=== PATIENT | male | born 1945 | race Caucasian/White ===

== ENCOUNTER → 2020-06-13 | Outpatient (CLI) | payer MEDICARE, OTHER ==
--- NOTE | 2020-07-07 18:15 | PF ---
[address] [address] PULMONARY FUNCTION REPORT Name: CATHLEEN ANDINO Room: [facility]#: [id number] Admission: 06/13/20 Attend Phys: Ivan Bailey MD Discharge: Date of : 49 Report #: [id number] THIS REPORT FOR: //name// CC: Salvatore Akhtar DATE OF SERVICE: 06/13/2020 The FEV1/FVC ratio is normal at 82%, but FVC is severely decreased to 42% and the FEV1 is decreased to 48%. The [id number] is normal at 78%. After the administration of a bronchodilator, there is a 25% increase in FVC and a 41% increase in FEV1 to 68%, which is equal to 1.87 liters. There is also a marked increase in QRI20-24 to 161% noted. The total lung capacity is normal at 88%. The residual volume is increased to 148%. The DLCO as adjusted for hemoglobin is normal at 83%. IMPRESSION: 1. The severity of obstruction by FEV1 criteria is judged based on the post-bronchodilator FEV1. Going by those criteria, this patient has moderate obstruction. It is, however, noted that the patient's initial FEV1 is noted to be 48%, which is in the severe range. It is, however, possible that this initial FEV1 may be an underestimate due to variation in the patient's effort. Repeating spirometry to clarify this may therefore be considered if clinically appropriate. There is evidence of reversibility as described above. 2. Hyperinflation with a significant increase in residual volume, but total lung capacity is normal. 3. The DLCO as adjusted for hemoglobin is normal at 83%. <ELECTRONICALLY SIGNED> By: Neel Hayes MD 07/07/20 1815 [id number] Hayes MD /nt
== END ==
LOC: M.PUL 11:01
PROVIDERS: ATTEND Internal Medicine Pulmonary Disease
DX: J84.10 Pulmonary fibrosis, unspecified (principal); J84.9 Interstitial pulmonary disease, unspecified; R94.2 Abnormal results of pulmonary function studies

== ENCOUNTER → 2020-06-24 | Outpatient (CLI) | payer MEDICARE, OTHER ==
--- NOTE | 2020-06-24 17:28 | 2DMMODE ---
[place] [address] 2 D/M-MODE ECHOCARDIOGRAM Name: SEFERINO ANDINO Room: [facility]#: [id number] Admission: 06/24/20 Attend Phys: Ivan Bailey MD Discharge: Date of : 49 Date of Service: 06/24/20 1728 Report #: [id number] THIS REPORT FOR: cc: Giorgio Akhtar Gregory DO Liston, Michael J. MD [facility] ~ APPROVED REPORT Study performed: 06/24/2020 13:59:14 EXAM: Comprehensive 2D, Doppler, and color-flow Echocardiogram Patient Location: Out-Patient BSA: 1.75 HR: 130 bpm Other Information Study Quality: Good Indications Increased Heart Rate 2D Dimensions IVSd: 10.01 (7-11mm) LVOT Diam: 20.69 (18-24mm) LVDd: 44.16 mm PWd: 10.79 (7-11mm) Ascending Ao: 34.54 (22-36mm) LVDs: 22.28 (25-40mm) Aortic Root: 33.68 mm Volumes Left Atrial Volume (Systole) LA ESV Index: 27.50 mL/m2 Aortic Valve AoV Peak Yeyo.: 1.11 m/s AO Peak Gr.: 4.95 mmHg LVOT Max P.73 mmHg AO Mean Gr.: 3.00 mmHg LVOT Mean P.02 mmHg LVOT Max V: 1.09 m/s AO V2 VTI: 15.08 cm LVOT Mean V: 0.65 m/s GIGI (VTI): 3.27 cm2 LVOT V1 VTI: 14.67 cm Mitral Valve MV Decel. Time: 108.21 [place] [address] 2 D/M-MODE ECHOCARDIOGRAM Name: SEFERINO ANDINO Room: [facility]#: [id number] Admission: 06/24/20 Attend Phys: Ivan Bailey MD Discharge: Date of : 49 Date of Service: 06/24/20 1728 Report #: [id number] PHT: 31.38 ms MVA (PHT): 7.01 cm2 TDI Medial E' Yeyo.: 0.09 m/s Lateral E' Yeyo.: 0.15 m/s Pulmonary Valve PV Peak Yeyo.: 0.64 m/s PV Peak Gr.: 1.66 mmHg Tricuspid Valve RAP Estimate: 5.00 mmHg TR Peak Gr.: 35.03 mmHg RVSP: 40.03 mmHg PA Pressure: 40.03 mmHg Left Ventricle The left ventricle is normal size. There is normal LV segmental wall motion. There is normal left ventricular wall thickness. Left ventricular systolic function is hyperdynamic. LVEF is >70%. Transmitral Doppler flow pattern suggests impaired LV relaxation. Right Ventricle The right ventricle is normal size. The right ventricular systolic function is normal. Atria The left atrium size is normal. The right atrium size is normal. Aortic Valve Mild aortic valve sclerosis. Mild aortic regurgitation. There is no aortic valvular stenosis. Mitral Valve The mitral valve is normal in structure. Moderate mitral regurgitation. No evidence of mitral valve stenosis. Tricuspid Valve The tricuspid valve is normal in structure. Mild to moderate tricuspid regurgitation. The RVSP is 40-45 mmHg. Pulmonic Valve The pulmonary valve is normal in structure. There is no pulmonic [place]vular [place] [address] 2 D/M-MODE ECHOCARDIOGRAM Name: SINASEFERINO VIVAS Maren Room: [facility]#: [id number] Admission: 06/24/20 Attend Phys: Ivan Bailey MD Discharge: Date of : 49 Date of Service: 06/24/20 1728 Report #: [id number] Great Vessels The aortic root is normal in size. IVC is normal in size and collapses >50% with inspiration. Pericardium There is no pericardial effusion. <Conclusion> The left ventricle is normal size. There is normal left ventricular wall thickness. Left ventricular systolic function is hyperdynamic. LVEF is >70%. Transmitral Doppler flow pattern suggests impaired LV relaxation. Mild aortic valve sclerosis. Mild aortic regurgitation. There is no aortic valvular stenosis. Moderate mitral regurgitation. Mild to moderate tricuspid regurgitation. The RVSP is 40-45 mmHg. IVC is normal in size and collapses >50% with inspiration. <ELECTRONICALLY SIGNED> By: Seferino Smith MD, FACC 06/24/201727 27 27 Seferino Smtih MD, FACC /INF
== END ==
LOC: M.CRD 13:39
PROVIDERS: ATTEND Internal Medicine Pulmonary Disease
DX: I08.3 Combined rheumatic disorders of mitral, aortic and tricuspid valves (principal); I27.20 Pulmonary hypertension, unspecified

== ENCOUNTER → 2020-08-07 | Outpatient (CLI) | payer MEDICARE, OTHER ==
--- NOTE | 2020-08-26 09:27 | SLEEP ---
[address] [address] SLEEP STUDY REPORT Name: CATHLEEN ANDINO Room: [facility]#: [id number] Admission: 08/07/20 Attend Phys: Ivan Bailey MD Discharge: Date of : 49 Report #: [id number] THIS REPORT FOR: //name// CC: Ivan Akhtar This study has been reviewed in its entirety by a board certified sleep specialist DATE OF SERVICE: 08/07/2020 SLEEP STUDY INTERPRETATION: Total duration of the study is 412 minutes, out of which he was asleep for 275 minutes with an overall sleep efficiency of 67%. Sleep onset initially occurred about 18 minutes after lying in bed and REM onset was 108 minutes after sleep onset. N1 sleep duration was 6%, N2 duration was 66%, N3 duration was 18% and REM duration was 10%. We did record multiple sleep related respiratory events. These included, 20 central apneas in addition to 1 obstructive apnea, 11 hypopneas and 40 respiratory effort related arousals. Overall, apnea-hypopnea index was 7.0, respiratory disturbance index of 15.7. Body position data indicates the patient was observed in the supine position, asleep for about 30 minutes. The rest of the time, the patient was in other positions. There is no significant positional variation noted. Heart rate was 85. Periodic limb movement index is elevated to 28. Most limb movements, however, are not associated with arousals. The arousal index is mildly elevated to 30. There are multiple saturations recorded overall. The patient spent 10.4 minutes below an O2 saturation in the 80s. In addition, there were desaturations below 80% for 1.7 minutes. Overall, the patient spent 7.6 minutes below an O2 saturation of 88%. IMPRESSION: Central sleep apnea with an apnea-hypopnea index of 7.0 with mild nocturnal hypoxemia as above. Due to the fact that majority of events were of central origin, the use of CPAP is contraindicated in this patient. RECOMMENDATIONS: As the use of CPAP in this patient is contraindicated, I recommended the patient be brought back to the Sleep Lab and a BiPAP titration be performed. In case the patient remains hypoxemic, then I would consider adding oxygen in line during the BiPAP titration. I recommend increasing E only if there are obstructive apneas noted. Otherwise, we will primarily titrate I to the optimal level and then if indicated add a backup rate. <ELECTRONICALLY SIGNED> By: Neel Hayes MD 08/26/20 0927 [id number] Hayes MD /nt
== END ==
LOC: M.SLEEPLAB 07-02 20:00
PROVIDERS: ATTEND Internal Medicine Pulmonary Disease
DX: G47.31 Primary central sleep apnea (principal); J84.9 Interstitial pulmonary disease, unspecified